=== PATIENT | male | born 1985 | race Caucasian/White ===

== ENCOUNTER 2022-10-16 09:10 | Emergency (ER) | payer OTHER ==
[~2022-10-16] VITALS: Ht 180.3 cm; Wt 83.2 kg
[2022-10-16 09:14] VITALS: BP 131/81
[2022-10-16] MEDS ORDERED: acetaminophen 325mg tablet PO ONE (10:25)
== END 2022-10-16 10:43 | disposition home or self-care (01) ==
LOC: ER 09:10
DX: M54.50 Low back pain, unspecified (principal)
CPT/HCPCS: 99282